=== PATIENT | female | born 1990 | race American Indian/Alaskan Native ===

== ENCOUNTER 2018-10-25 11:32 | Emergency (ER) | payer MEDICAID, OTHER ==
--- NOTE | 2018-10-25 12:00 | Emergency Department Report ---
Blank Doc - Documentation Documentation: This is a 28-year-old female that presents with pelvic cramping with nausea. Denies any vomiting. This initial assessment/diagnostic orders/clinical plan/treatment(s) is/are subject to change based on patient's health status, clinical progression and re- assessment by fellow clinical providers in the ED. Further treatment and workup at subsequent clinical providers discretion. Patient/guardians urged not to elope from the ED as their condition may be serious if not clinically assessed and managed. Initial orders include: 1- Patient sent to [facility] for further evaluation and treatment 2- UA
[2018-10-25 12:03] VITALS: BP 130/89
[2018-10-25 12:42] LABS: HCG Qualitative,Urine Positive (Negative)
[2018-10-25 12:43] LABS: Bilirubin,Urine NEG (Negative); Blood,Urine NEG (Negative); Color,Urine Straw (Yellow); Mucus,Urine FEW /HPF; Protein,Urine <15 mg/dL mg/dL (Negative); Urobilinogen,Urine < 2.0 mg/dL (<2.0)
--- NOTE | 2018-10-25 12:54 | Emergency Department Report ---
ED Dysuria HPI - HPI Chief Complaint: Abdominal Pain Stated Complaint: SEVERE CRAMPS/IRRIATAION Time Seen by Provider: 10/25/18 11:59 Duration: 1 Day Severity: Mild Symptoms: Dysuria: No, Frequency: No, Suprapubic Pain: No, Flank Pain: No, Fever: No, Hematuria: No, Abdominal Pain: No, Previous UTI's: No Other History: Patient is a 28 year-old who comes to the ER today complaining of abdominal cramping. She states that she is due to start her period today. Her last menstrual cycle was 09/24/2018. She denies having a home test that was positive. Patient denies any vaginal bleeding or back pain. ED Review of Systems ROS: Stated complaint: SEVERE CRAMPS/IRRIATAION Other details as noted in HPI Comment: All other systems reviewed and negative ED Past Medical Hx - Past Medical History Previous Medical History?: No - Surgical History Past Surgical History?: No - Family History Family history: no significant - Social History Smoking Status: Never Smoker Substance Use Type: Marijuana - Medications Home Medications: Home Medications Medication Instructions Recorded Confirmed Last Taken Type Ondansetron [Zofran Odt] 4 mg PO Q8HR PRN #10 tab.rapdis 10/25/18 Unknown Rx Vit-Fe Fumar-FA [ 1 tab PO QDAY #30 tablet 10/25/18 Unknown Rx Vitamin] Dysuria Exam - Exam General: Vital signs noted. No distress. Alert and acting appropriately. Exam: Yes Moist Mucous Membranes, No CVA Tenderness, No Abdominal Tenderness, No Rigidity or Guarding Labs: Lab Results 10/25/18 Range/Units Unknown Urine Color Straw (Yellow) Urine Turbidity Clear (Clear) Urine pH 7.0 (5.0-7.0) Ur Specific Bellamy 1.010 (1.003-1.030) Urine Protein <15 mg/dl (Negative) mg/dL Urine Glucose (UA) Neg (Negative) mg/dL Urine Ketones Neg (Negative) mg/dL Urine Blood Neg (Negative) Urine Nitrite Neg (Negative) Ur Reducing Substances Not Reportable Urine Bilirubin Neg (Negative) Urine Ictotest Not Reportable Urine Urobilinogen < 2.0 (<2.0) mg/dL Ur Leukocyte Esterase Sm (Negative) Urine WBC (Auto) 1.0 (0.0-6.0) /HPF Urine RBC (Auto) 2.0 (0.0-6.0) /HPF U Epithel Cells (Auto) 3.0 (0-13.0) /HPF Urine Mucus Few /HPF Urine HCG, Qual Positive A (Negative) ED Course Vital Signs 10/25/18 12:02 Temperature 98.9 F Pulse Rate 88 Respiratory 18 Rate Blood Pressure 130/89 [Left] O2 Sat by Pulse 100 Oximetry ED Medical Decision Making - Medical Decision Making Vital Signs 10/25/18 12:02 Temperature 98.9 F Pulse Rate 88 Respiratory 18 Rate Blood Pressure 130/89 [Left] O2 Sat by Pulse 100 Oximetry Labs 10/25/18 Unknown Urine Color Straw Urine Turbidity Clear Urine pH 7.0 Ur Specific Bellamy 1.010 Urine Protein <15 mg/dl Urine Glucose (UA) Neg Urine Ketones Neg Urine Blood Neg Urine Nitrite Neg Ur Reducing Substances Not Reportable Urine Bilirubin Neg Urine Ictotest Not Reportable Urine Urobilinogen < 2.0 Ur Leukocyte Esterase Sm Urine WBC (Auto) 1.0 Urine RBC (Auto) 2.0 U Epithel Cells (Auto) 3.0 Urine Mucus Few Urine HCG, Qual Positive A U PREG POS PT HAS NO VAG BLEEDING LMP 5-20 DC PT WITH RX FOR /ZOFRAN AND FOLLOW UP WITH OBGYN. VSS. NAD. AMBULATORY AND TAKING PO ON DC Critical care attestation.: If time is entered above; I have spent that time in minutes in the direct care of this critically ill patient, excluding procedure time. ED Disposition Clinical Impression: Disposition: DC-01 TO HOME OR SELFCARE Is pt being admited?: No Does the pt Need Aspirin: No Condition: Stable Instructions: (ED) Additional Instructions: DIET TOLERATED AVOID ALCOHOL, CIG., OR DRUGS VITAMIN DAILY FOLLOW UP OBGYN ACTIVITY TOLERATED TYLENOL FOR ANY PAIN Prescriptions: Vit-Fe Fumar-FA [ Vitamin] 1 tab PO QDAY #30 tablet Ondansetron [Zofran Odt] 4 mg PO Q8HR PRN #10 tab.rapdis PRN Reason: Vomiting Referrals: HERI MALDONADO MD [Staff Physician] - 3-5 Days Time of Disposition: 12:51
== END 2018-10-25 13:00 | disposition home or self-care (01) ==
LOC: ED 11:32
DX: O26.891 Other specified pregnancy related conditions, first trimester (principal); R30.0 Dysuria; R10.9 Unspecified abdominal pain; Z3A.01 Less than 8 weeks gestation of pregnancy
CPT/HCPCS: 81001; 81025